=== PATIENT | male | born 1995 | race Caucasian/White ===

== ENCOUNTER 2020-04-02 06:29 | Emergency (ER) | payer OTHER, BC ==
[~2020-04-02] VITALS: Ht 180.3 cm; Wt 86.2 kg
[~2020-04-02 06:29] MED LIST: ACETAMINOPHEN-1 EAC1 PO; CIPROFLOXACIN500 M1 PO
[2020-04-02] MEDS ORDERED: SYMBICORT160 MCG/4. INH (06:39)
[2020-04-02 07:20] LABS: ABSOLUTE BASOPHILS 0.1 thou/uL (0.0-0.2); ABSOLUTE EOSINOPHILS 0.1 thou/uL (0.0-0.7); ABSOLUTE LYMPHOCYTES 2.3 thou/uL (0.8-5.3); ABSOLUTE MONOCYTES 0.9 thou/uL (0.0-1.2); ABSOLUTE NEUTROPHILS 8.3 thou/uL (1.6-8.1); BASOPHILS 0.6 %; EOSINOPHILS 0.5 %; HEMATOCRIT 46.7 % (42.0-52.0); HEMOGLOBIN 16.4 gm/dL (14.0-18.0); LYMPHOCYTES 19.7 %; MCV 88.3 fL (80.0-100.0); MONOCYTES 7.5 %; MPV 8.1 fl. (7.2-11.1); NUCLEATED RBCS 0 /100WBC; PLATELET COUNT* 266 thou/uL (150-400); POLYS 71.7 %; RBC 5.29 mil/uL (4.50-6.00); RDW-CV 12.7 % (10.5-14.5); WBC 11.5 thou/uL (4.0-11.0)
[2020-04-02 07:30] LABS: CALCIUM 8.5 mg/dL (8.5-10.1); POTASSIUM 3.3 mmol/L (3.5-5.1)
[2020-04-02 07:34] LABS: ALBUMIN 3.7 g/dL (3.4-5.0); TOTAL BILIRUBIN 0.4 mg/dL (<0.1-1.0); TOTAL PROTEIN 6.7 g/dL (6.4-8.2)
[2020-04-02 07:54] LABS: URINE BILIRUBIN NEGATIVE (Negative); URINE BLOOD NEGATIVE (Negative); URINE CLARITY CLEAR; URINE COLOR YELLOW; URINE GLUCOSE-RANDOM NEGATIVE (Negative); URINE KETONES NEGATIVE (Negative); URINE LEUKOCYTES-REFLEX NEGATIVE (Negative); URINE NITRITE-REFLEX NEGATIVE (Negative); URINE PROTEIN NEGATIVE (Negative); URINE SPECIFIC GRAVITY <= 1.005 (1.005-1.030); URINE UROBILINOGEN 0.2 E.U./dl (0.2-1.0)
[2020-04-02 08:01] LABS: AMP/METHAMP Negative (Negative); BARBITURATES Negative (Negative); BENZODIAZEPINES Negative (Negative); COCAINE Negative (Negative); METHADONE Negative (Negative); OPIATES Negative (Negative); PCP Negative (Negative); THC Negative (Negative)
--- NOTE | 2020-04-02 08:12 | EKG ---
[place] [address] ELECTROCARDIOGRAM REPORT Name: GRANT ROJAS Room: [facility]#: [id number] Admission: 04/02/20 Attend Phys: Discharge: Date of : [birth year] Date of Service: 04/02/20631 Report #: [id number] THIS REPORT FOR: //name// [facility] ED Test Date: 2020-04-02 Test Time: 06:32:27 Pat Name: GRANT ROJAS Department: Room: Gender: Nurse Sane: : 1995 Requested By: Irena Hastings Order Number: [id number] MD: Bryce Haddad Measurements Intervals [place] Rate: 68 P: 47 [place]: 164 QRS: 54 QRSD: 99 T: 9 QT: 382 QTc: 407 Interpretive Statements Sinus rhythm Compared to ECG 08/18/2015 18:55:56 Intraventricular conduction delay no longer present Electronically Signed On 04-02-2020 8:10:53 CDT by Bryce Haddad [email or web address] <ELECTRONICALLY SIGNED> By: Bryce Haddad MD, [facility] 04/02/20809 1 1 Bryce Haddad MD, FACC /EPI
[2020-04-02 08:27] VITALS: BP 130/70
== END 2020-04-02 08:27 | disposition home or self-care (01) ==
LOC: M.ERS 06:29
PROVIDERS: Emergency Medicine
DX: R07.89 Other chest pain (principal); J45.909 Unspecified asthma, uncomplicated; Z88.1 Allergy status to other antibiotic agents; Z79.899 Other long term (current) drug therapy